=== PATIENT | male | born 1965 | race Caucasian/White ===

== ENCOUNTER 2018-02-19 02:36 | Emergency (ER) | payer OTHER ==
--- NOTE | 2018-02-19 02:51 | ED Physician Documentation ---
PD HPI ABD PAIN - Stated complaint Stated Complaint: ABDOMINAL PAIN - Chief complaint Chief Complaint: Abd Pain - History obtained from History obtained from: Patient - History of Present Illness Timing - onset: How many days ago (2) Timing - details: Abrupt onset, Intermittant, Waxing and waning Pain level max: 8 Pain level now: 6 Quality: Pain Location: RUQ Radiation: Other (right upper paralumbar), Right flank Improved by: Other (nothing) Worsened by: Other (no exacerbating factors) Associated symptoms: Nausea. No: Fever, Vomiting, Diarrhea, Constipation Similar symptoms before: Has not had sx before Recently seen: Not recently seen Review of Systems Constitutional: reports: Reviewed and negative Cardiac: reports: Reviewed and negative Respiratory: reports: Reviewed and negative GI: reports: Abdominal Pain, Nausea. denies: Vomiting, Constipation, Diarrhea : denies: Dysuria, Frequency PD PAST MEDICAL HISTORY - Past Medical History Past Medical History: No - Past Surgical History Past Surgical History: No - Present Medications Home Medications: Ambulatory Orders Medication Instructions Recorded Confirmed HYDROcod/ACETAM 5/325 [Telferner 5/325] 1 - 2 ea PO Q6H PRN #15 tablet 09/09/15 HYDROcod/ACETAM 5/325 [Telferner 5/325] 1 - 2 ea PO Q6H PRN #15 tablet 02/19/18 - Allergies Allergies/Adverse Reactions: Allergies Allergy/AdvReac Type Severity Reaction Status Date / Time No Known Drug Allergies Allergy Verified 02/19/18 02:50 - Social History Does the pt smoke?: No Smoking Status: Never smoker Does the pt drink ETOH?: No Does the pt have substance abuse?: No - Immunizations Immunizations are current?: No PD ED PE NORMAL - Vitals Vital signs reviewed: Yes - General General: Alert and oriented X 3, No acute distress, Well developed/nourished - HEENT HEENT: Moist mucous membranes - Cardiac Cardiac: RRR, No murmur - Respiratory Respiratory: No respiratory distress, Clear bilaterally - Abdomen Abdomen: Soft, Non distended PD ED PE EXPANDED - Abdomen Abdomen: Tender to palpation, RUQ. No: Rebound, Guarding Results - Vitals Vitals: Vital Signs - 24 hr 02/19/18 02/19/18 06:02 06:55 Heart Rate 69 67 Respiratory 17 18 Rate Blood Pressure 129/84 H 137/98 H O2 Saturation 97 98 Oxygen O2 Source Room air - Labs Labs: Laboratory Tests 02/19/18 02/19/18 02/19/18 03:00 03:00 03:00 WBC 9.1 RBC 4.29 L Hgb 13.6 L Hct 39.4 L MCV 91.9 MCH 31.6 H MCHC 34.4 RDW 13.6 Plt Count 216 MPV 8.3 Neut # (Auto) 5.1 Lymph # (Auto) 2.8 Evangeline # (Auto) 0.7 Eos # (Auto) 0.4 Baso # (Auto) 0.1 Absolute Nucleated RBC 0.00 Nucleated RBC % 0.0 Sodium 139 Potassium 3.7 Chloride 105 Carbon Dioxide 26 Anion Gap 8.0 BUN 14 Creatinine 1.0 Estimated GFR (MDRD) 79 L Glucose 113 H Calcium 9.2 Total Bilirubin 0.4 AST 18 ALT 29 Alkaline Phosphatase 46 Troponin I < 0.04 Total Protein 6.9 Albumin 4.0 Globulin 2.9 Albumin/Globulin Ratio 1.4 Lipase 37 Urine Color Urine Clarity Urine pH Ur Specific [place] Urine Protein Urine Glucose (UA) Urine Ketones Urine Occult Blood Urine Nitrite Urine Bilirubin Urine Urobilinogen Ur Leukocyte Esterase Ur Microscopic Review Urine Culture Comments 02/19/18 05:37 WBC RBC Hgb Hct MCV MCH MCHC RDW Plt Count MPV Neut # (Auto) Lymph # (Auto) [place]eline # (Auto) Eos # (Auto) Baso # (Auto) Absolute Nucleated RBC Nucleated RBC % Sodium Potassium Chloride Carbon Dioxide Anion Gap BUN Creatinine Estimated GFR (MDRD) Glucose Calcium Total Bilirubin AST ALT Alkaline Phosphatase Troponin I Total Protein Albumin Globulin Albumin/Globulin Ratio Lipase Urine Color YELLOW Urine Clarity CLEAR Urine pH 6.0 Ur Specific [place] <=1.005 Urine Protein NEGATIVE Urine Glucose (UA) NEGATIVE Urine Ketones NEGATIVE Urine Occult Blood TRACE-INTA Urine Nitrite NEGATIVE Urine Bilirubin NEGATIVE Urine Urobilinogen 0.2 (NORMAL) Ur Leukocyte Esterase NEGATIVE Ur Microscopic Review NOT INDICATED Urine Culture Comments NOT INDICATED - Rads (name of study) RUQ US Radiology: Prelim report reviewed, See rad report PD MEDICAL DECISION MAKING - ED course Complexity details: reviewed results, re-evaluated patient, considered differential, d/w patient - Sepsis Event Vital Signs: Vital Signs - 24 hr 02/19/18 02/19/18 06:02 06:55 Heart Rate 69 67 Respiratory 17 18 Rate Blood Pressure 129/84 H 137/98 H O2 Saturation 97 98 Oxygen O2 Source Room air Departure - Departure Disposition: 01 Home, Self Care Clinical Impression: Biliary colic Condition: Good Instructions: ED Gallstone W Biliary Colic Follow-Up: Nona Wilson MD [Provider Admit Priv/Credential] - Prescriptions: HYDROcod/ACETAM 5/325 [Telferner 5/325] 1 - 2 ea PO Q6H PRN #15 tablet PRN Reason: Pain Discharge Date/Time: 02/19/18 06:55
[2018-02-19] MEDS ORDERED: KETOROLAC 30 MG/ML VIAL IVP STA (03:44)
[2018-02-19 03:49] LABS: BASOPHILS # (AUTO) 0.1 10^3/uL (0.0-0.1); BASOPHILS % (AUTO) 0.6 %; EOSINOPHILS # (AUTO) 0.4 10^3/uL (0.0-0.7); EOSINOPHILS % (AUTO) 4.1 %; HGB - HEMOGLOBIN 13.6 g/dL (14.0-18.0); LYMPHOCYTES # (AUTO) 2.8 10^3/uL (1.5-3.5); LYMPHOCYTES % (AUTO) 31.2 %; MEAN CORPUSCULAR HEMOGLOBIN 31.6 pg (27.0-31.0); MEAN CORPUSCULAR HGB CONC 34.4 g/dL (32.0-36.0); MEAN CORPUSCULAR VOLUME 91.9 fL (80.0-94.0); MEAN PLATELET VOLUME 8.3 fL (7.4-11.4); MONOCYTES # (AUTO) 0.7 10^3/uL (0.0-1.0); MONOCYTES % (AUTO) 7.4 %; NEUTROPHILS # (AUTO) 5.1 10^3/uL (1.5-6.6); NEUTROPHILS % (AUTO) 56.7 %; PLT - PLATELET COUNT 216 10^3/uL (130-450); RED BLOOD COUNT 4.29 10^6/uL (4.70-6.10); RED CELL DISTRIBUTION WIDTH 13.6 % (12.0-15.0); WHITE BLOOD COUNT 9.1 x10^3/uL (4.8-10.8)
[2018-02-19 04:02] LABS: ALBUMIN/GLOBULIN RATIO 1.4 (1.0-2.2); BILIRUBIN,TOTAL 0.4 mg/dL (0.2-1.0); CALCIUM 9.2 mg/dL (8.5-10.3); TOTAL PROTEIN 6.9 g/dL (6.7-8.2)
[2018-02-19] MEDS ORDERED: FAMOTIDINE 20 MG/2 ML VIAL IVP STA (04:40)
--- NOTE | 2018-02-19 05:29 | Ultrasound Report ---
Reason: epigastric pain Procedure Date: 02/19/2018 Accession Number: [id number] / [id number] Procedure: US - Abdomen Limited CPT Code: FULL RESULT: EXAM: ABDOMEN ULTRASOUND LIMITED, RUQ EXAM DATE: 02/19/2018 05:19 AM. CLINICAL HISTORY: Epigastric pain. COMPARISON: ABDOMEN W/ 09/09/2015 12:51 AM. TECHNIQUE: Real-time scanning was performed with static images obtained. FINDINGS: Liver: The liver is echogenic, suggesting fatty infiltration. 16.8 cm. Main portal vein flow: Hepatopetal. Gallbladder: Cholelithiasis, with calculi lodged in the gallbladder neck. Positive sonographic Braun sign. Biliary System: CBD measures 10 mm. Possible choledocholithiasis. Other: No free fluid. IMPRESSION: Cholelithiasis, with gallstones lodged in the gallbladder neck, and positive sonographic Braun sign, compatible with acute cholecystitis. Biliary dilatation, with possible choledocholithiasis. RADIA
[2018-02-19 06:12] LABS: BILIRUBIN,URINE NEGATIVE (NEGATIVE); GLUCOSE, URINE (UA) NEGATIVE (NEGATIVE); KETONES,URINE (UA) NEGATIVE (NEGATIVE); LEUKOCYTE ESTERASE, URINE NEGATIVE (NEGATIVE); NITRITE,URINE NEGATIVE (NEGATIVE); OCCULT BLOOD,URINE TRACE-INTA (NEGATIVE); PROTEIN,URINE NEGATIVE (NEGATIVE); UROBILINOGEN,URINE 0.2 (NORMAL) E.U./dL (NORMAL)
[2018-02-19 06:13] LABS: CLARITY,URINE CLEAR (CLEAR)
[2018-02-19 06:56] VITALS: BP 137/98
== END 2018-02-19 06:55 | disposition home or self-care (01) ==
LOC: ED 02:36
DX: K80.50 Calculus of bile duct without cholangitis or cholecystitis without obstruction (principal)
CPT/HCPCS: 36415; 76705; 80053; 81001; 81003; 83690; 84484; 85025; 87086; 93005; 96374; 96375; 99283; 99284

== ENCOUNTER 2018-03-21 03:22 | Day surgery (SDC) | payer OTHER ==
--- NOTE | 2018-03-21 03:36 | ED Physician Documentation ---
PD HPI ABD PAIN - Stated complaint Stated Complaint: ABD PX - Chief complaint Chief Complaint: Abd Pain - History obtained from History obtained from: Patient - History of Present Illness Timing - onset: How many hours ago (this episode started 3 hours ago, although he first started having similar pain one month ago) Timing - details: Abrupt onset, Intermittant Pain level max: 6 Pain level now: 6 Quality: Pain Location: RUQ, Epigastric Radiation: No: Chest, , Lower back, Left flank, Left shoulder, Right flank, Right shoulder, Upper back Improved by: Other Worsened by: Other (no exacerbating factors) Associated symptoms: No: Fever, Nausea, Vomiting, Diarrhea, Constipation Similar symptoms before: Diagnosis (biliary colic) Recently seen: Emergency Dept (1 month ago for same symptoms) - Additional information Additional information: T+R from this ED 1 month ago for similar symptoms, diagnosed with biliary colic. He says he was seen by PMD approximately 1 week later and he was told he would likely need surgery and would be referred to a surgeon; patient is awaiting approval for this referral. He has run out of the vicodin prescribed on previous visit, but was using this sparingly despite having episodes of RUQ and epigastric pain nearly every night for the past month. 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 Review of Systems Constitutional: reports: Sweats. denies: Fever, Chills Ears: reports: Reviewed and negative Nose: reports: Reviewed and negative Throat: reports: Reviewed and negative Cardiac: reports: Reviewed and negative Respiratory: reports: Reviewed and negative GI: reports: Abdominal Pain. denies: Nausea, Vomiting, Constipation, Diarrhea : denies: Dysuria, Frequency Skin: reports: Reviewed and negative Musculoskeletal: reports: Reviewed and negative Neurologic: reports: Reviewed and negative PD PAST MEDICAL HISTORY - Past Medical History Cardiovascular: High cholesterol Psych: Depression - Past Surgical History Past Surgical History: No - Present Medications Home Medications: Ambulatory Orders Medication Instructions Recorded Confirmed Antianxiety Medicine 03/21/18 - Allergies Allergies/Adverse Reactions: Allergies Allergy/AdvReac Type Severity Reaction Status Date / Time No Known Drug Allergies Allergy Verified 03/21/18 03:48 - Social History Does the pt smoke?: No Smoking Status: Never smoker Does the pt drink ETOH?: No Does the pt have substance abuse?: No - Immunizations Immunizations are current?: No - POLST Patient has POLST: No PD ED PE NORMAL - Vitals Vital signs reviewed: Yes - General General: Alert and oriented X 3, Well developed/nourished, Other (obvious painful distress, diaphoretic) - HEENT HEENT: PERRL, EOMI, Moist mucous membranes - Neck Neck: Supple, no meningeal sign - Cardiac Cardiac: RRR, No murmur - Respiratory Respiratory: No respiratory distress, Clear bilaterally - Abdomen Abdomen: Soft, Non distended, Other (mild/moderate RUQ and epigastric tenderness without rebound or guarding. also mild RUQ/epigastric tenderness with palpation of LUQ.) - Back Back: No CVA TTP - Derm Derm: Normal color, No rash, Other (diaphoretic) - Extremities Extremities: No edema - Neuro Neuro: Alert and oriented X 3 Eye Opening: Spontaneous Motor: Obeys Commands Verbal: Oriented GCS Score: 15 Results - Vitals Vitals: Vital Signs - 24 hr 03/21/18 03/21/18 03/21/18 03:34 04:19 05:14 Temperature 36.9 C Heart Rate 60 56 L 57 L Respiratory 16 16 18 Rate Blood Pressure 144/99 H 140/93 H 134/99 H O2 Saturation 99 98 98 03/21/18 03/21/18 06:03 08:09 Temperature 36 C L Heart Rate 52 L 57 L Respiratory 18 18 Rate Blood Pressure 117/69 120/65 O2 Saturation 97 97 Oxygen O2 Source Room air - EKG (time done) No standard instances Rate: Rate (enter#) (52) Rhythm: Sinus bradycardia Fisher: Normal Intervals: Normal IN QRS: Normal Ischemia: Normal ST segments, T wave inversion (isolated to III) Computer interpretation: Disagree with computer (no ST abnormalities) - Labs Labs: Laboratory Tests 03/21/18 03/21/18 03/21/18 03:45 03:45 03:45 WBC 7.2 RBC 4.58 L Hgb 14.2 Hct 41.8 L MCV 91.2 MCH 31.1 H MCHC 34.1 RDW 13.7 Plt Count 233 MPV 8.1 Neut # (Auto) 3.7 Lymph # (Auto) 2.5 [place] # (Auto) 0.6 Eos # (Auto) 0.4 Baso # (Auto) 0.1 Absolute Nucleated RBC 0.01 Nucleated RBC % 0.1 Sodium 139 Potassium 3.5 Chloride 104 Carbon Dioxide 26 Anion Gap 9.0 BUN 13 Creatinine 1.1 Estimated GFR (MDRD) 71 L Glucose 118 H Calcium 9.4 Total Bilirubin 0.3 AST 18 ALT 21 Alkaline Phosphatase 49 Troponin I < 0.04 Total Protein 7.2 Albumin 4.2 Globulin 3.0 Albumin/Globulin Ratio 1.4 Lipase 39 - Rads (name of study) RUQ US Radiology: Prelim report reviewed, See rad report PD MEDICAL DECISION MAKING - ED course Complexity details: reviewed old records, reviewed results, re-evaluated patient, considered differential, d/w patient, d/w family ED course: improved with IV toradol and pepcid ("3 or 4" out of 10, down from 6 out of 10). however, while awaiting US results, pain gradually worsened. Dilaudid 0.5 mg IV given (patient wanted small dose), but this did not provide any further relief. Surgery consult obtained, Dr. Cruz evaluated patient in ED and will look into options for OR schedule today. Patient given 1mg IV dilaudid and this provided good symptomatic relief per patient. Case signed out to Dr. Caro (oncoming ED physician) at end of my shift pending disposition. - Sepsis Event Vital Signs: Vital Signs - 24 hr 03/21/18 03/21/18 03/21/18 03:34 04:19 05:14 Temperature 36.9 C Heart Rate 60 56 L 57 L Respiratory 16 16 18 Rate Blood Pressure 144/99 H 140/93 H 134/99 H O2 Saturation 99 98 98 03/21/18 03/21/18 06:03 08:09 Temperature 36 C L Heart Rate 52 L 57 L Respiratory 18 18 Rate Blood Pressure 117/69 120/65 O2 Saturation 97 97 Oxygen O2 Source Room air
[2018-03-21] MEDS ORDERED: FAMOTIDINE 20 MG/50 ML 50 ML IV ONE (03:47)
[2018-03-21] MEDS ORDERED: KETOROLAC 60 MG/2 ML VIAL IVP STA (03:48)
[2018-03-21 03:57] LABS: BASOPHILS # (AUTO) 0.1 10^3/uL (0.0-0.1); BASOPHILS % (AUTO) 1.1 %; EOSINOPHILS # (AUTO) 0.4 10^3/uL (0.0-0.7); EOSINOPHILS % (AUTO) 5.8 %; HGB - HEMOGLOBIN 14.2 g/dL (14.0-18.0); LYMPHOCYTES # (AUTO) 2.5 10^3/uL (1.5-3.5); LYMPHOCYTES % (AUTO) 34.2 %; MEAN CORPUSCULAR HEMOGLOBIN 31.1 pg (27.0-31.0); MEAN CORPUSCULAR HGB CONC 34.1 g/dL (32.0-36.0); MEAN CORPUSCULAR VOLUME 91.2 fL (80.0-94.0); MEAN PLATELET VOLUME 8.1 fL (7.4-11.4); MONOCYTES # (AUTO) 0.6 10^3/uL (0.0-1.0); MONOCYTES % (AUTO) 8.3 %; NEUTROPHILS # (AUTO) 3.7 10^3/uL (1.5-6.6); NEUTROPHILS % (AUTO) 50.6 %; PLT - PLATELET COUNT 233 10^3/uL (130-450); RED BLOOD COUNT 4.58 10^6/uL (4.70-6.10); RED CELL DISTRIBUTION WIDTH 13.7 % (12.0-15.0); WHITE BLOOD COUNT 7.2 x10^3/uL (4.8-10.8)
[2018-03-21 04:10] LABS: ALBUMIN 4.2 g/dL (3.2-5.5); ALBUMIN/GLOBULIN RATIO 1.4 (1.0-2.2); BILIRUBIN,TOTAL 0.3 mg/dL (0.2-1.0); CALCIUM 9.4 mg/dL (8.5-10.3); CREATININE 1.1 mg/dL (0.6-1.2); TOTAL PROTEIN 7.2 g/dL (6.7-8.2)
--- NOTE | 2018-03-21 05:19 | Ultrasound Report ---
Reason: abd. pain Procedure Date: 03/21/2018 Accession Number: [id number] / [id number] Procedure: US - Abdomen Limited CPT Code: FULL RESULT: EXAM: ABDOMEN ULTRASOUND LIMITED, RUQ EXAM DATE: 03/21/2018 04:54 AM. CLINICAL HISTORY: Abdominal pain. COMPARISON: ABDOMEN LIMITED 02/19/2018 4:30 AM. TECHNIQUE: Real-time scanning was performed with static images obtained. FINDINGS: Liver: Fatty infiltration. 17 cm. Main portal vein flow: Hepatopetal. Gallbladder: Enlarged. Nonmobile stone at the gallbladder neck. Mobile 2.2 cm stone. Wall thickness is normal at 2 mm. There is tenderness over the gallbladder. Biliary System: CBD measures 4 mm. No intrahepatic or extrahepatic ductal dilatation. Other: Right kidney measures 11.6 cm and appears normal. Inferior vena cava is patent where seen. IMPRESSION: 1. Enlarged gallbladder with nonmobile stone at the neck and additional 2.2 cm mobile stone. 2. Focal tenderness over the gallbladder. Findings are consistent with cholecystitis. 3. No biliary dilatation seen. 4. Fatty liver. RADIA
[2018-03-21] MEDS ORDERED: HYDROmorphone 1 MG/ML CARPUJECT IVP STA ×2 (05:42→06:44)
[2018-03-21] MEDS ORDERED: SODIUM CHLORIDE 0.9% 1,000 ML IV STA (06:44)
--- NOTE | 2018-03-21 09:21 | ED Physician Documentation ---
ED Addendum - Addendum Addendum: 03/21/18 09:19 52 male with acute isaias and stone lodged in neck of GB due to go to OR at 3 PM has been seen by surgery Dr Cruz and antibiotics IVF and pain meds are ordered I went and introduced myself to the pt he is doing well right now, minimal pain RRR CTAB soft, mild RUQ TTP will board in ED till 3 PM
--- NOTE | 2018-03-21 13:34 | ANESTHESIA ---
Pre-Anesthesia VS, & Labs - Diagnosis Cholelithiasis - Procedure Laparoscopic Cholecystectomy Vital Signs: Temp Pulse Resp BP Pulse Ox 36.2 C L 60 20 140/79 H 98 03/21/18 11:58 03/21/18 11:58 03/21/18 11:58 03/21/18 11:58 03/21/18 11:58 Height 6 ft Weight (kg) 90.718 kg Body Mass Index 27.1 - NPO >8 hours - Lab Results Current Lab Results: Laboratory Tests 03/21/18 03:45: Troponin I < 0.04 03/21/18 03:45: Sodium 139, Potassium 3.5, Chloride 104, Carbon Dioxide 26, Anion Gap 9.0, BUN 13, Creatinine 1.1, Estimated GFR (MDRD) 71 L, Glucose 118 H, Calcium 9.4, Total Bilirubin 0.3, AST 18, ALT 21, Alkaline Phosphatase 49, Total Protein 7.2, Albumin 4.2, Globulin 3.0, Albumin/Globulin Ratio 1.4, Lipase 39 03/21/18 03:45: WBC 7.2, RBC 4.58 L, Hgb 14.2, Hct 41.8 L, MCV 91.2, MCH 31.1 H, MCHC 34.1, RDW 13.7, Plt Count 233, MPV 8.1, Neut # (Auto) 3.7, Lymph # (Auto) 2.5, [place] # (Auto) 0.6, Eos # (Auto) 0.4, Baso # (Auto) 0.1, Absolute Nucleated RBC 0.01, Nucleated RBC % 0.1 Lab results reviewed: Yes Fish Bones: 03/21/18 03:45 03/21/18 03:45 Home Medications and Allergies Home Medications: Ambulatory Orders Medication Instructions Recorded Confirmed Antianxiety Medicine 03/21/18 Antianxiety Medicine 03/21/18 Allergies/Adverse Reactions: Allergies Allergy/AdvReac Type Severity Reaction Status Date / Time No Known Drug Allergies Allergy Verified 03/21/18 03:48 Anes History & Medical History - Anesthetic History Anesthesia Complications: reports: No previous complications Family history of Anesthesia Complications: Denies Family history of Malignant Hyperthermia: Denies - Medical History Cardiovascular: reports: High cholesterol Smoking Status: Never smoker Psychosocial: reports: Anxiety Other Past Medical History: Recently DX 3 wks ago w/ Gallstones Results - EKG Results EKG Comparison: Reviewed EKG Exam General: Alert, Oriented x3, Cooperative, No acute distress Dental: WNL Mouth Opening: Greater than 4 Fingerbreadths Neck Mobility: Normal Mallampati classification: II Thyromental Distance: greater than 6 cm Respiratory: Lungs clear, Normal breath sounds, No respiratory distress, No accessory muscle use Cardiovascular: Regular rate (Bradycardia @55) Neurological: Normal speech Mental/Cognitive Status: Alert/Oriented X3 Cognitive Status: Within normal limits Plan Anesthesia Type: General Consent for Procedure(s) Verified and Reviewed: Yes Code Status: Attempt Resuscitation ASA classification: 2-Mild systemic disease Is this case an emergency?: No
[2018-03-21] MEDS ORDERED: BUPIVACAINE 0.5%-EPI 1:200000 PF 30 ML VIAL ONE (13:51)
[2018-03-21] MEDS ORDERED: BUPIVACAINE 0.5%-EPI 1:200000 PF 30 ML VIAL SUBQ ONE (14:28)
--- NOTE | 2018-03-21 15:12 | CONSULTATION NOTE ---
Referring Provider Name of Referring Provider:: Dr. Caro Consult Date: 03/21/18 Chief Complaint - Chief Complaint Chief Complaint: abd pain History of Present Illness - Admitted From Admitted From:: ER - History Obtained From Records Reviewed: yes History obtained from: pt, records Exam Limitations: none - History of Present Illness HPI Comment/Other: 52 yo male with one month hx of episodic severe grinding nonradiating RUQ and epigastric pain, associated with nausea but no vomiting, chills but no fever, exacerbated by fatty foods, no associated jaundice, acholic stools, change in bowel habits, wt changes, urinary or respiratory sx. FH gallbladder disease in his sister, neg FH GI tumors. No melena/brbpr. Was seen in ER for above sx 1 month ago where an US showed findings c/w acute calculous cholecystitis with mildly dilated biliary tree, was referred for surgery but has yet to see a surgeon. Sx persist almost daily, last 2-3 hours, until last night when sx began around [place] and have persisted. Repeat US today shows 2 cm stone in neck of gallbladder, no wall thickness or pericholecystic fluid; nl bile ducts and + sono Bruan's sign. Surgical consultation was requested. No hx frequent hearburn, indigestion, dysphagia. History - Past Medical History Cardiovascular: reports: High cholesterol Neuro: reports: Peripheral neuropathy Psych: reports: Depression, Other (insomnia) MRSA Hx?: Yes Other Past Medical History: Recently DX 3 wks ago w/ Gallstones - Family & Social History Family History Comment/Other: sister with gb dz; neg for GI tumors Living arrangement: At home Living Situation: With spouse/s.o. - Substance History Use: Uses substance without health or social issues: Cannabis (daily) - POLST Patient has POLST: No Meds/Allgy - Home Medications Home Medications: Ambulatory Orders Medication Instructions Recorded Confirmed Antianxiety Medicine 03/21/18 - Allergies Allergies/Adverse Reactions: Allergies Allergy/AdvReac Type Severity Reaction Status Date / Time No Known Drug Allergies Allergy Verified 03/21/18 03:48 Review of Systems - Constitutional Constitutional: reports: Chills. denies: Fever, Weight gain, Weight loss - Cardiovascular Cariovascular: denies: Irregular heart rate, Palpitations, Chest pain - Respiratory Respiratory: denies: Cough, Sputum production, Wheezing - Gastrointestinal Gastrointestinal: reports: Abdominal pain, Nausea. denies: Constipation, Di arrhea, Change in bowel habits, Rectal bleeding, Black stools, Bloody stools, Vomiting, Bile emesis, Dominick blood emesis, Coffee grounds emesis, Reflux/heartburn - Genitourinary Genitourinary: denies: Dysuria, Frequency - Neurological Neurological: reports: Numbness - Psychiatric Psychiatric: reports: Depression - Hematologic/Lymphatic Hematologic/Lymphatic: denies: Blood clots, Bleeding tendencies - All Other Systems All Other Systems: reports: Reviewed and negative Exam - Vital Signs Reviewed Vital Signs: Yes Vital Signs: Vital Signs x48h Temp Pulse Resp BP Pulse Ox 03/21/18 11:58 36.2 C L 60 20 140/79 H 98 03/21/18 10:11 37 C 67 18 126/82 H 97 03/21/18 08:09 36 C L 57 L 18 120/65 97 - Physical Exam General Appearance: positive: Alert, Mild distress Eyes Bilateral: positive: Normal inspection, Conjunctivae nml, No scleral icterus ENT: positive: ENT inspection nml, Pharynx nml, No signs of dehydration Neck: positive: Nml inspection, No JVD. negative: Lymphadenopathy (R), Lymphadenopathy (L) Respiratory: positive: Chest non-tender, No respiratory distress, Breath sounds nml. negative: Wheezes, Rales, Rhonchi Cardiovascular: positive: Regular rate & rhythm, No murmur, No gallop Peripheral Pulses: positive: 2+ Abdomen: positive: Nml bowel sounds, Tenderness (mild tenderness in RUQ with vol guarding; no peritoneal signs) Back: positive: Nml inspection. negative: CVA tenderness (R), CVA tenderness (L) Skin: positive: Color nml, No rash, Warm, Dry. negative: Cyanosis Extremities: positive: Non-tender, No pedal edema. negative: Calf tenderness Neurologic/Psychiatric: positive: Oriented x3 Conclusion/Plan - Diagnosis Diagnosis: Symptomatic gallbladder disease; biliary colic, possible subacute calculous cholecystitis, may have passed a common duct stone in the interval between two US studies. No clinical evidence of same at present. - Plan Plan: Lap cholecystectomy with poss IOC; PAR conf with patient in detail and consent obtained. Thanks, - Lab Results Lab results reviewed: Yes Fish Bones: 03/21/18 03:45 03/21/18 03:45 Other Lab Results: lfts, lipase nl - Diagnostic Imaging Results Diagnostic Imaging Results: positive: Final report reviewed, Read independently Diagnostic Imaging Results Comments: see hpi - EKG Results EKG Interpreted Independently: No EKG Findings: sinus bradycardia; NAD
[2018-03-21] MEDS ORDERED: fentaNYL 100 MCG/2 ML VIAL IVP ONE (15:44)
[2018-03-21] MEDS ORDERED: MIDAZOLAM 2 MG/2 ML VIAL IVP ONE (15:44)
[2018-03-21] MEDS ORDERED: DEXAMETHASONE 4 MG/ML VIAL IVP ONE (15:44)
[2018-03-21] MEDS ORDERED: LIDOCAINE-MPF 2% 5 ML VIAL IM ONE (15:44)
[2018-03-21] MEDS ORDERED: ONDANSETRON 4 MG/2 ML VIAL IVP ONE (15:44)
[2018-03-21] MEDS ORDERED: PHENYLEPHRINE 50 MG/5 ML VIAL IV ONE (15:44)
[2018-03-21] MEDS ORDERED: GLYCOPYRROLATE 1 MG/5 ML VIAL IVP ONE (15:44)
[2018-03-21] MEDS ORDERED: ceFAZolin 1 GM VIAL IV ONE (15:44)
[2018-03-21] MEDS ORDERED: ROCURONIUM 50 MG/5 ML VIAL IVP ONE (15:44)
[2018-03-21] MEDS ORDERED: KETOROLAC 30 MG/ML VIAL IVP ONE (15:44)
[2018-03-21] MEDS ORDERED: PROPOFOL 200 MG/20 ML VIAL IVP ONE (15:44)
[2018-03-21] MEDS ORDERED: NEOSTIGMINE 1 MG/1 ML 10 ML MDV IVP ONE (15:44)
[2018-03-21] MEDS ORDERED: SODIUM CHLORIDE 0.9% 1,000 ML IV ONE (15:55)
[2018-03-21] MEDS ORDERED: ACETAMINOPHEN 325 MG TABLET PO PRN (16:54)
[2018-03-21] MEDS ORDERED: ONDANSETRON 4 MG/2 ML VIAL IVP PRN (16:54)
[2018-03-21] MEDS ORDERED: IBUPROFEN 600 MG TABLET PO PRN (16:54)
[2018-03-21] MEDS ORDERED: oxyCODONE 5 MG TABLET PO PRN (16:54)
[2018-03-21] MEDS ORDERED: SUGAMMADEX 200 MG/2 ML VIAL IVP ONE (17:04)
[2018-03-21] MEDS ORDERED: LACTATED RINGERS 1,000 ML IV ONE (17:30)
[2018-03-21] MEDS ORDERED: ONDANSETRON 4 MG/2 ML VIAL ONE (17:51)
[2018-03-21 21:10] VITALS: BP 125/69
--- NOTE | 2018-03-22 03:05 | OPERATIVE REPORT ---
DATE OF SERVICE: 03/21/2018 Physician: Leander Hummel MD PREOPERATIVE DIAGNOSIS: Acute calculous cholecystitis. POSTOPERATIVE DIAGNOSIS: Acute calculous cholecystitis. PROCEDURE: Laparoscopic cholecystectomy. ANESTHESIA: General endotracheal by Chris Adler CRNA. SURGEON: Leander Hummel MD REIMBURSEMENT REP: Dylan Cruz MD ESTIMATED BLOOD LOSS: 25 mL COMPLICATIONS: None. FINDINGS: Laparoscopy revealed an acutely inflamed, edematous gallbladder without pericholecystic ad hesions and with a normal-appearing liver, stomach, and visualized portions of small and large bowel. The cystic duct was of normal caliber. The common duct was not visualized. Following resection, t he gallbladder was seen to contain 2 large, dark green, mulberry-type, mixed-cholesterol stones measu ring 15 and 20 mm in diameter, respectively. INDICATIONS: Patient is a 52-year-old gentleman with a 1-month history of episodic, severe epigastri c and right upper quadrant pain. Evaluation included ultrasonography showing a large stone impacted in the neck of the gallbladder, normal bile ducts, a dilated gallbladder, positive sonographic Braun sign. CBC and liver function tests, lipase were normal. He was felt to be suffering from subacute or acute calculous cholecystitis and advised to undergo laparoscopic cholecystectomy. TECHNIQUE: After informed consent, the patient was taken to the operating room, where he was placed under general endotracheal anesthesia. Preoperative preparation glue administration of 2 grams of ce fazolin intravenously and application of sequential calf compression boots. His abdomen was clipped and prepared with ChloraPrep solution and draped in the usual sterile fashion. A transverse incision was made along the inferior edge of the umbilicus and carried down through the layers of the abdominal wall until the peritoneum was identified and entered sharply. A 10 mm Saqib cannula was inserted and pneumoperitoneum achieved with carbon dioxide. A 10 mm 30-degree Olympus t elescope was inserted. Laparoscopy was carried out. Findings noted above. Three 5 mm ports were placed in the right upper quadrant. Instruments were passed. The gallbladder was grasped and retracted in a cephalad and lateral direction, exposing the cystic triangle of Calot. This area was edematous and inflamed and was carefully dissected using a hook electrode and electro cautery, eventually isolating the cystic duct and artery. The artery was doubly clipped distally and proximally and divided between. The cystic duct was eventually fully mobilized and exposed adjacent to the gallbladder. The critical view of safety was obtained, and the cystic duct was triply clipped distally, doubly proximally, and divided between. The gallbladder was detached from the liver bed using electrocautery for dissectio n and hemostasis. It was detached intact, placed in an organ retrieval bag, opened on a side table, and then the tissue sent for pathologic evaluation. After hemostasis was assured, the right upper quadrant was copiously irrigated with saline solution, following which, instruments and cannulas were removed under direct vision. Pneumoperitoneum was all owed to escape, and the incisions were closed in layers using continuous 0 Vicryl, reapproximating th e midline fascia at the umbilicus, followed by 4-0 Monocryl subcuticular skin closure of all port sit es, followed by Dermabond. Thirty mL of 0.5% Marcaine with epinephrine was infiltrated into the inci sions to assist in postoperative analgesia. Anesthesia was terminated, and the patient was transferr ed to the recovery room. The patient had a difficult extubation phase with combative behavior. Bhaskar lamb see anesthesia notes for details. TD: 03/21/2018 17:36
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
== END 2018-03-21 21:55 | disposition home or self-care (01) ==
LOC: ED 03:22 → SDS 09:10 → MS2 18:19 → SDS 21:55
PROVIDERS: ATTEND Internal Medicine Gastroenterology
PROC: 0FT44ZZ Resection of Gallbladder, Percutaneous Endoscopic Approach (ICD-10-PCS; principal; 2018-03-21 12:00)
DX: K80.13 Calculus of gallbladder with acute and chronic cholecystitis with obstruction (principal); T88.59XA Other complications of anesthesia, initial encounter; R45.6 Violent behavior; R06.81 Apnea, not elsewhere classified; T41.295A Adverse effect of other general anesthetics, initial encounter; Y92.238 Other place in hospital as the place of occurrence of the external cause; F41.9 Anxiety disorder, unspecified; F32.9 Major depressive disorder, single episode, unspecified; Z83.79 Family history of other diseases of the digestive system; Z86.14 Personal history of Methicillin resistant Staphylococcus aureus infection
CPT/HCPCS: 36415; 47562; 76705; 80053; 83690; 84484; 85025; 93005; 96361; 96365; 96375; 96376; 99284; 99285; J1170; J7120